=== PATIENT | female | born 1995 | race Caucasian/White ===

== ENCOUNTER 2020-02-26 11:07 | Inpatient (IN) ==
[2020-02-26] MEDS ORDERED: *HR* FentaNYL (PF) 100 MCG/2 ML VIAL IVP PRN (11:11)
[2020-02-26] MEDS ORDERED: Famotidine 20 MG/2 ML VIAL IVP PRN (11:11)
[2020-02-26] MEDS ORDERED: Metoclopramide 10 MG/2 ML VIAL IVP PRN (11:11)
[2020-02-26] MEDS ORDERED: Naloxone 0.4 MG/ML INJ IVP PRN (11:11)
[2020-02-26] MEDS ORDERED: Lidocaine 1% 20 ML MDV INFILT PRN (11:11)
[2020-02-26] MEDS ORDERED: Ondansetron 4 MG/2 ML VIAL IVP PRN (11:11)
[2020-02-26] MEDS ORDERED: miSOPROStoL 25 MCG TABLET PO PRN (11:11)
[2020-02-26 12:22] LABS: Basophils % 0.3 %; Eosinophils % 0.3 %; Hematocrit 38.7 % (35.3-44.9); Hemoglobin 13.2 g/dL (11.5-15.4); Immature Granulocytes % 0.3 % (0-4); Lymphocytes # 1.2 K/mcL (0.6-4.6); Lymphocytes % 15.4 %; Mean Corpuscular HGB Conc 34.1 g/dL (31.6-35.5); Mean Corpuscular Hemoglobin 31.1 pg (28.0-33.3); Mean Corpuscular Volume 91.3 fL (83.0-100.0); Mean Platelet Volume 12.9 fL (9.4-12.4); Monocytes # 0.6 K/mcL (0.0-1.3); Monocytes % 7.9 %; Neutrophils # 5.8 K/mcL (1.6-8.9); Platelet Count 187 K/mcL (140-400); Red Blood Count 4.24 M/mcL (3.82-4.97); Red Cell Distribution Width 14.8 % (11.5-14.5); Segmented Neutrophils % 75.8 %; White Blood Count 7.6 K/mcL (4.3-11.1)
[2020-02-26 12:44] LABS: Amphetamine Screen,Urine Negative ng/mL (Cutoff=1000); Barbiturate Screen,Urine Negative ng/mL (Cutoff=200); Benzodiazepines Screen,Urine Negative ng/mL (Cutoff=200); Cannabinoid Screen,Urine Negative ng/mL (Cutoff = 50); Cocaine Screen,Urine Negative ng/mL (Cutoff= 300); Opiate Screen,Urine Negative ng/mL (Cutoff=300); Phencyclidine Screen,Urine Negative ng/mL (Cutoff=25)
[2020-02-26] MEDS ORDERED: Oxytocin 20 units/ LR 1000 mL 20 UNIT/1,000 ML BAG IVC SCH (17:30)
[2020-02-26] MEDS: Ringers Solution, Lactated 1,000 ML IVC SCH ×2 (17:40→22:51)
[2020-02-26] MEDS ORDERED: EPHEDrine 50 MG/ML VIAL IVP PRN (21:22)
[2020-02-26] MEDS ORDERED: Epidural Premix (fent/bupiv) 110 ML EP SCH (21:30)
[2020-02-26] MEDS ORDERED: 0.9 % Sodium Chloride 1,000 ML ONE (23:10)
[2020-02-27] MEDS ORDERED: Oxytocin 20 units/ LR 1000 mL 20 UNIT/1,000 ML BAG IVC ONE (04:17)
[2020-02-27] MEDS ORDERED: *HR* HYDROcodone/Acet 5/325 mg TABLET PO PRN (04:17)
[2020-02-27] MEDS ORDERED: Oxytocin 20 units/ LR 1000 mL 20 UNIT/1,000 ML BAG IVC SCH (04:17)
[2020-02-27] MEDS ORDERED: Lanolin 7 G OINT...G. TP PRN (04:17)
[2020-02-27] MEDS ORDERED: Acetaminophen 325 MG TABLET PO PRN (04:17)
[2020-02-27] MEDS ORDERED: Benzocaine/Menthol 56 GM AEROSOL SPRAY TP PRN (04:17)
[2020-02-27] MEDS: Prenatal Vit/FA 1 EACH TABLET PO SCH (07:29)
[2020-02-27] MEDS: Ibuprofen 600 MG TABLET PO PRN ×2 (10:46→20:14)
[2020-02-28] MEDS: Ibuprofen 600 MG TABLET PO PRN (08:03)
[2020-02-28] MEDS: Prenatal Vit/FA 1 EACH TABLET PO SCH (08:04)
[2020-02-28 10:33] LABS: Alanine Aminotransferase 17 Units/L (7-52); Aspartate Amino Transferase 21 Units/L (13-39); BUN/Creatinine Ratio 13 (6-26); Blood Urea Nitrogen 7 mg/dL (6-20); Lactate Dehydrogenase 195 Units/L (140-271); Uric Acid 4.5 mg/dL (2.3-7.6); eGFR For African Americans > 60 (> 60); eGFR For Non-African Americans > 60 (> 60)
[2020-02-28 10:39] LABS: Basophils % 0.2 %; Eosinophils % 0.3 %; Hematocrit 35.6 % (35.3-44.9); Immature Granulocytes % 0.5 % (0-4); Lymphocytes # 1.1 K/mcL (0.6-4.6); Mean Corpuscular HGB Conc 31.7 g/dL (31.6-35.5); Mean Corpuscular Volume 94.4 fL (83.0-100.0); Mean Platelet Volume 12.7 fL (9.4-12.4); Monocytes # 0.6 K/mcL (0.0-1.3); Monocytes % 6.5 %; Platelet Count 135 K/mcL (140-400); Red Blood Count 3.77 M/mcL (3.82-4.97); Segmented Neutrophils % 81.5 %; White Blood Count 9.8 K/mcL (4.3-11.1)
[2020-02-28 10:40] LABS: Hemoglobin 11.3 g/dL (11.5-15.4)
[2020-02-28] MEDS ORDERED: FLUoxetine HCl 10 MG CAPSULE PO SCH (10:45)
[2020-02-28 15:48] VITALS: BP 123/87
== END 2020-02-28 18:05 | disposition home or self-care (01) | DRG 807 ==
LOC: 1NENULAB 11:07 → 1NENUOBS 02-27 04:16
PROVIDERS: ADMIT Advanced Practice Midwife; ATTEND Advanced Practice Midwife

== ENCOUNTER 2021-07-18 21:15 | Observation (INO) ==
[2021-07-18 21:55] LABS: Bilirubin,Urine Negative (Negative); Blood,Urine Negative (Negative); Clarity,Urine Clear (Clear); Color,Urine Light-Yellow (Yellow); Glucose,Urine (UA) Normal (Normal); Ketones,Urine Negative (Negative); Leukocyte Esterase,Urine Negative (Negative); Nitrite,Urine Negative (Negative); Protein,Urine Negative (Neg-Trace); Specific Gravity,Urine 1.011 (1.010-1.025); Urobilinogen,Urine Normal (Normal)
[2021-07-18 21:56] LABS: Basophils % 0.4 %; Eosinophils % 0.2 %; Hematocrit 41.4 % (35.3-44.9); Hemoglobin 14.3 g/dL (11.5-15.4); Immature Granulocytes % 0.2 % (0-4); Lymphocytes # 1.3 K/mcL (0.6-4.6); Lymphocytes % 14.8 %; Mean Corpuscular HGB Conc 34.5 g/dL (31.6-35.5); Mean Corpuscular Volume 86.8 fL (83.0-100.0); Mean Platelet Volume 11.2 fL (9.4-12.4); Monocytes # 0.6 K/mcL (0.0-1.3); Monocytes % 6.9 %; Neutrophils # 6.9 K/mcL (1.6-8.9); Platelet Count 262 K/mcL (140-400); Red Blood Count 4.77 M/mcL (3.82-4.97); Segmented Neutrophils % 77.5 %
[2021-07-18 22:05] LABS: Amphetamine Screen,Urine Negative ng/mL (Cutoff=1000); Barbiturate Screen,Urine Negative ng/mL (Cutoff=200); Benzodiazepines Screen,Urine Negative ng/mL (Cutoff=200); Cannabinoid Screen,Urine Negative ng/mL (Cutoff = 50); Cocaine Screen,Urine Negative ng/mL (Cutoff= 300); Opiate Screen,Urine Negative ng/mL (Cutoff=300); Phencyclidine Screen,Urine Negative ng/mL (Cutoff=25)
[2021-07-18 22:21] LABS: Acetaminophen < 10 mcg/mL (10-20); BUN/Creatinine Ratio 12 (6-26); Blood Urea Nitrogen 7 mg/dL (6-20); Calcium 9.7 mg/dL (8.6-10.3); Carbon Dioxide 22 mEq/L (23-29); Chloride 107 mEq/L (98-107); Cholesterol 173 mg/dL (< 200); Estimated Average Glucose 100 mg/dl; Ethanol < 10 mg/dL (Less than 10); Glucose 134 mg/dL (70-105); HDL Cholesterol 43 mg/dL (40-59); Hemoglobin A1C 5.1 %; LDL Cholesterol,Calculated 109 mg/dL (< 100); Osmolality,Calculated 286 (280-300); Potassium 3.5 mEq/L (3.5-5.1); Salicylate < 2.5 mg/dL (15.0-30.0); Sodium 138 mEq/L (136-145); Triglycerides 105 mg/dL (< 150); eGFR For African Americans > 60 (> 60); eGFR For Non-African Americans > 60 (> 60)
[2021-07-19 00:59] LABS: Influenza A PCR Negative (Negative); Influenza B PCR Negative (Negative); Resp. Syncytial Virus PCR Negative (Negative)
[2021-07-19 01:02] LABS: SARS-CoV-2 by PCR (In House) Negative (Negative)
[2021-07-19] MEDS ORDERED: *HR* LORazepam 2 MG/ML VIAL IM PRN (01:42)
[2021-07-19] MEDS ORDERED: haloperidoL 5 MG TABLET PO PRN (01:42)
[2021-07-19] MEDS ORDERED: Acetaminophen 325 MG TABLET PO PRN (01:42)
[2021-07-19] MEDS ORDERED: *HR* LORazepam 1 MG TABLET PO PRN (01:42)
[2021-07-19] MEDS ORDERED: hydrOXYzine pamoate 25 MG CAPSULE PO PRN (01:42)
[2021-07-19] MEDS ORDERED: Haloperidol Lactate 5 MG/ML VIAL IM PRN (01:42)
[2021-07-19] MEDS: traZODone 50 MG TABLET PO PRN ×2 (02:38→20:51)
[2021-07-19] MEDS: FLUoxetine 20 MG CAPSULE PO SCH (08:32)
[2021-07-19 08:49] VITALS: O2SAT 98
[2021-07-19] MEDS ORDERED: ARIPiprazole 5 MG TABLET PO SCH (21:00)
[2021-07-20] MEDS: FLUoxetine 20 MG CAPSULE PO SCH (09:33)
[2021-07-20 09:39] VITALS: BP 99/66; PULSE 108; TEMP 98.8
[2021-07-20] MEDS ORDERED: Mag Hydrox/Al Hydrox/Simeth 30 ML UDC PO PRN (12:15)
[2021-07-20] MEDS ORDERED: MOM Conc 10 ML UD.LIQ PO PRN (12:15)
== END 2021-07-20 13:05 | disposition home or self-care (01) ==
LOC: EMEROOARM 21:15 → 1ANU 07-19 01:24 → INTOOBSV 07-19 01:24 → 1ANU 07-19 02:05
PROVIDERS: ADMIT Psychiatry & Neurology Psychiatry; ATTEND Psychiatry & Neurology Psychiatry